=== PATIENT | male | born 1985 | race Caucasian/White ===

== ENCOUNTER → 2018-09-22 | Outpatient (CLI) | payer BC ==
[2018-09-22 18:00] LABS: BASO % 0.3 % (0.0-2.0); EOS # 0.2 (0.0-0.7); EOS % 2.3 % (0-4.0); GRAN # 3.5 (1.4-6.5); GRAN % 54.4 % (42.2-75.2); HEMATOCRIT 46.2 % (42.0-52.0); HEMOGLOBIN 16.3 g/dl (13.5-18.0); LYMPH # 2.3 (1.2-3.4); MEAN CELL VOLUME 85 fl (80.0-100.0); MEAN CORPUSCULAR HEMOGLOBIN 30 pg (27.0-31.0); MEAN CORPUSCULAR HGB CONC 35 g/dl (33.0-37.0); MEAN PLATELET VOLUME 9.9 fl (7.4-10.4); MONO # 0.4 (0.1-0.6); MONO % 6.7 % (1.7-9.3); PLATELET COUNT 213 K/mm3 (130-400); RED BLOOD COUNT 5.45 M/mm3 (4.20-5.60); REDCELL DISTRIBUTION WIDTH-CV 12.5 % (11.5-14.5)
[2018-09-22 18:02] LABS: CREATININE, serum 0.78 (0.66-1.25); POTASSIUM 4.8 mmol/L (3.4-5.0)
== END ==
LOC: ZCOL.LAB 17:06
PROVIDERS: Family Medicine
DX: R06.02 Shortness of breath (principal)

== ENCOUNTER → 2018-10-20 | Outpatient (CLI) | payer BC | LOC: COL.RAD 10:06 | DX: M25.562 Pain in left knee (principal) ==

== ENCOUNTER → 2018-11-15 | Outpatient (CLI) | payer BC | LOC: COL.PUL 07:58 | DX: R06.02 Shortness of breath (principal); Z87.891 Personal history of nicotine dependence ==